=== PATIENT | male | born 1960 | race Hispanic/Latino ===

== ENCOUNTER → 2017-04-04 | Day surgery (SDC) | payer OTHER ==
[~2017-04-04] MED LIST: ATENOLOL50 MG; CRESTOR20 MG; FENTANYL CITRATE/PF 100MCG/2 ML INJ ONE; GLIMEPIRIDE2 MG PO; HYOSCYAMINE SULFATE 0.5 MG/ML AMP ONE; LIDOCAINE HCL 2% LOCAL INJ 5 ML SDV VIAL INJ ONE; METFORMIN HCL500 MG PO; MIDAZOLAM HCL 2 MG/2 ML VIAL ONE; PLAVIX75 MG PO; PROPOFOL IV EMULSION 10 MG/ML 50 ML VIAL ONE; VASOTEC5 MG PO; ZETIA10 MG
--- NOTE | 2017-04-04 11:39 | Operative Report ---
DATE OF PROCEDURE: April 04, 2017 REFERRING PHYSICIAN: Altaf Meza MD PROCEDURE PERFORMED: Colonoscopy with polypectomy. INDICATIONS FOR COLONOSCOPY: Colorectal cancer screening. Personal history of colon polyps. MEDICATION: Patient was done under MAC. Please see anesthesiologist's note. PROCEDURE: With the patient in the left lateral decubitus position, the flexible fiberoptic Olympus colonoscope was inserted into the rectum with ease and advanced all the way to the cecum. It was then withdrawn slowly. Mucosa overlying the cecum and ascending colon appeared to be within normal limits. One polyp was hot biopsied from the transverse. The descending appeared to be within normal limits. Diverticular disease was noted to involve the sigmoid. The rectum was within normal limits. The scope was then retroflexed into the distal rectum, and small internal hemorrhoids were noted, none of which was actively bleeding. The scope was then straightened out. The rectosigmoid area as well as the distal rectal area were decompressed. Scope was subsequently withdrawn. Patient tolerated the procedure well. IMPRESSION 1. Transverse colon polyp, hot biopsied. 2. Diverticulosis. 3. Internal hemorrhoids, none actively bleeding. PLAN: Follow up histology. Initiate high-fiber, low-fat diet. Initiate high-fiber supplement. Patient will need a followup colonoscopy in 3 years. Job#: [id number] cc:ALTAF MEZA MD
== END | disposition home or self-care (01) ==
LOC: OR 08:33
PROVIDERS: ATTEND Internal Medicine Gastroenterology
DX: Z12.11 Encounter for screening for malignant neoplasm of colon (principal); K63.5 Polyp of colon; K57.30 Diverticulosis of large intestine without perforation or abscess without bleeding; K64.8 Other hemorrhoids; E11.9 Type 2 diabetes mellitus without complications; I10 Essential (primary) hypertension; I25.2 Old myocardial infarction; Z01.810 Encounter for preprocedural cardiovascular examination; Z79.02 Long term (current) use of antithrombotics/antiplatelets; Z68.35 Body mass index [BMI] 35.0-35.9, adult; Z95.5 Presence of coronary angioplasty implant and graft
CPT/HCPCS: 36415; 45384; 82948; 93005; J1980; J2001; J2250